=== PATIENT | female | born 1930 | race Caucasian/White ===

== ENCOUNTER 2017-05-26 22:31 | Emergency (ER) | payer OTHER ==
[~2017-05-26] VITALS: Ht 154.9 cm; Wt 89.4 kg
[2017-05-26] MEDS ORDERED: ZANAFLEX2 M1 PO (23:11)
[2017-05-26] MEDS ORDERED: ULTRACET (23:11)
[2017-05-26] MEDS ORDERED: GABAPENTIN400 MG PO (23:12)
[2017-05-26] MEDS ORDERED: ARICEPT10 MG PO (23:13)
[2017-05-26] MEDS ORDERED: ZOCOR40 MG PO (23:13)
[2017-05-27] MEDS ORDERED: CIPRO500 MG PO (04:37)
== END 2017-05-27 04:28 ==
LOC: ER 22:31
DX: E11.65 Type 2 diabetes mellitus with hyperglycemia (principal)